=== PATIENT | female | born 1970 | race Caucasian/White ===

== ENCOUNTER 2017-06-26 07:16 | Emergency (ER) | payer BC ==
[2017-06-26 07:41] VITALS: BP 148/90
--- NOTE | 2017-06-26 08:16 | UC ---
Abdominal Pain Female HPI - HPI Summary HPI Summary: 46 yo female with acute onset of left flank pain yesterday no f/c some diaphoresis no n/v/d some constipation yesterday hx lap band no hx stones - History of Current Complaint Chief Complaint: UCAbdominalPain Stated Complaint: LEFT SIDE PAIN Time Seen by Provider: 06/26/17 08:06 Hx Obtained From: Patient Hx Last Menstrual Period: pt has a mirena in place Onset/Duration: Sudden Onset Severity Initially: Moderate Pain Intensity: 3 - 7-8 at times Pain Scale Used: 0-10 Numeric Location: Discrete At: LLQ Radiates: Yes Radiates to: Back Character: Aching, Sharp Aggravating Factor(s): Nothing Alleviating Factor(s): Nothing Female Torso: 1 - pain here 2 - radiates here Allergies/Adverse Reactions: Allergies Allergy/AdvReac Type Severity Reaction Status Date / Time SEasonal allergy Allergy Eyes Uncoded 06/26/17 07:44 Itchy/Swollen/Red/Watery Home Medications: Home Medications Albuterol HFA INHALER* [Ventolin HFA Inhaler*] 2 puff INH Q4H PRN 06/26/17 [ History Confirmed 06/26/17] Fluticasone NASAL SPRAY 50MCG* [Flonase NASAL SPRAY 50MCG*] 2 spray BOTH NARES DAILY 06/26/17 [History Confirmed 06/26/17] Spironolactone TAB* [Aldactone TAB*] 25 mg PO DAILY 06/26/17 [History Confirmed 06/26/17] metFORMIN* [Glucophage 500 MG TAB *] 500 mg PO BID 06/26/17 [History Confirmed 06/26/17] PMH/Surg Hx/FS Hx/Imm Hx Endocrine History: Thyroid Disease, Dyslipidemia Cardiovascular History: Hypertension GI/ History: Other Other GI/ History: PCOS - Surgical History Surgical History: Yes Surgery Procedure, Year, and Place: bariatric 12/2009 - Family History Known Family History: Positive: Hypertension, Other - diverticulitis - Social History Alcohol Use: Weekly Substance Use Type: None Smoking Status (MU): Never Smoked Tobacco Review of Systems Constitutional: Negative Skin: Negative Eyes: Negative ENT: Negative Respiratory: Negative Cardiovascular: Negative Gastrointestinal: Abdominal Pain Genitourinary: Negative Motor: Negative Neurovascular: Negative Musculoskeletal: Negative Neurological: Negative Psychological: Negative Is Patient Immunocompromised?: No All Other Systems Reviewed And Are Negative: Yes Physical Exam Triage Information Reviewed: Yes Appearance: Well-Appearing, No Pain Distress, Well-Nourished, Other: - BMI 50 Vital Signs: Initial Vital Signs Temp 98.1 F 06/26/17 07:32 Pulse 71 06/26/17 07:32 Resp 16 06/26/17 07:32 BP 148/90 06/26/17 07:32 Pulse Ox 98 06/26/17 07:32 Vital Signs Reviewed: Yes Eyes: Positive: Conjunctiva Clear ENT: Positive: Hearing grossly normal. Negative: Nasal congestion, Nasal drainage, Trismus, Muffled voice, Hoarse voice Neck: Positive: Supple, Nontender, No Lymphadenopathy Respiratory: Positive: Lungs clear, Normal breath sounds, No respiratory distress, No accessory muscle use Cardiovascular: Positive: RRR, No Murmur Abdomen Description: Negative: Nontender - markedly tender LLQ, CVA Tenderness ( R), CVA Tenderness (L) Musculoskeletal: Positive: ROM Intact, No Edema Neurological: Positive: Alert Psychological Exam: Normal Skin Exam: Normal Diagnostics - Laboratory Diagnostic Studies Completed/Ordered: uDip : (-) - Radiology No standard instances Xray Interpretation: No Acute Changes - Diverticulosis without definite evidence of diverticulitis Radiology Interpretation Completed By: Radiologist Abd Pain Female Course/Dx - Differential Dx/Diagnosis Provider Diagnoses: Left lower quadrient abd pain??? early diverticulitis. gall stones Discharge - Discharge Plan Condition: Stable Disposition: HOME Prescriptions: Amoxicillin/Clavulanate TAB* [Augmentin TAB 875*] 875 mg PO BID #14 tab Patient Education Materials: Diverticulitis (ED), Gallstones (ED) Referrals: Mukund More MD [Medical Doctor] - 2 Weeks Mouna Sanchez PA [Primary Care Provider] - 2 Days Additional Instructions: there was no definitive evidence of diverticulits but because of you exam I would like to start you on an antibiotic to ER for fever/vomiting/worsening pain I suggest you see your MD in 2 days for re check follow up with surgeon about your gallstones
--- NOTE | 2017-06-26 09:23 | RAD ---
Indication: Left flank pain. CT of the abdomen and pelvis was performed without oral or IV contrast administration. Coronal and sagittal reconstructed images were obtained. The lung bases demonstrate no pleural fluid, nodules or masses. Heart is of normal size without evidence of pericardial effusion. Liver is normal in size. No focal lesions or intrahepatic ductal dilatation is noted. The gallbladder demonstrates multiple calcified gallstones. No pericholecystic fluid or wall thickening is identified. The pancreas demonstrates no mass or pancreatic duct dilatation. The spleen is normal in size. No adrenal masses are noted. The kidneys demonstrates no hydronephrosis of either kidney. No evidence of renal or ureteral calculi is identified in either kidney. The kidneys demonstrates likely cortical cyst in the left kidney measuring up to 15 mm aorta and inferior vena cava are unremarkable. The pancreas demonstrates no mass or pancreatic duct dilatation. A lap band is identified. No dilated loops of bowel are noted. Aorta and inferior vena cava are unremarkable. There is diverticulosis present. No definite diverticulitis is noted. The uterus demonstrates IUD in place. The ovaries are grossly unremarkable. No hernias are noted. The urinary bladder is otherwise unremarkable. IMPRESSION: No evidence of obstructive uropathy is noted. Diverticulosis without definite evidence of diverticulitis.
== END 2017-06-26 09:41 | disposition home or self-care (01) ==
LOC: UCCORT 07:16
DX: R10.32 Left lower quadrant pain (principal); I10 Essential (primary) hypertension; E78.5 Hyperlipidemia, unspecified; E07.9 Disorder of thyroid, unspecified; K57.90 Diverticulosis of intestine, part unspecified, without perforation or abscess without bleeding
CPT/HCPCS: 74176; 81003; 99212; G0463

== ENCOUNTER 2018-04-03 14:53 | Emergency (ER) | payer BC ==
--- OUTSIDE RECORDS SUMMARY | 2018-04-03 15:09 | XMS REPORT ---
:1970 External Reference #:[id number] Author Organization [facility] Address [address] [place] [address] [place] [address] Phone [phone] Care Team Providers Name Role Phone Mouna Sanchez PA Primary Care Physician Unavailable Payers Type Date Identification Numbers Payment Provider Subscriber Commercial Policy Number: [id number] [facility] Gloria Barrera PayID: [id number] [address] [place] [address] Problems Description No Information Family History Date Family Member(s) Problem(s) Comments General Hypertension General Stroke Father Hypertension Father Stroke Mother Hypertension First Brother Hypertension Social History Type Date Description Comments Lives With Spouse 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 [employer] ETOH Use Drinks 5 Alcoholic Beverages Per Week Smoking Patient is a former smoker Exercise Type/Frequency Exercises sporadically Allergies, Adverse Reactions, Alerts Date Description Reaction Status Severity Comments 08/21/2017 NKDA active Medications Medication Date Status Form Strength Qnty SIG Indications Ordering Provider Proair HFA / Active Aerosol 108(90Base 2 puffs Unknown 0000 ) mcg/Act by mouth every 4 hours as needed Levothyroxine / Active Tablets 75mcg 1 by Unknown Sodium 0000 mouth every day Spironolactone / Active Tablets 25mg 1 by Unknown 0000 mouth every day Metformin HCL / Active Tablets 500mg 1 by Unknown 0000 mouth twice a day Flonase Allergy / Active Suspension 50mcg/Act spray 1 Unknown Relief 0000 spray in each nostril twice daily Calcium 600 + D / Active Tablets 600-200mg- 1 by Unknown 0000 Unit mouth twice a day Claritin / Active Capsules 10mg 1 tab Unknown 0000 daily as needed Celebrex / Active Capsules 100mg 1 tab by Unknown 0000 mouth daily Multivitamin 00/ Active Tablets 1 by Unknown Adult 0000 mouth every day Vital Signs Date Vital Result Comment 03/14/2018 Height 66 inches 5'6" Weight 302.00 lb BP Systolic Sitting 126 mmHg BP Diastolic Sitting 68 mmHg Respiratory Rate 17 /min Pain Level 2 BMI (Body Mass Index) 48.7 kg/m2 01/24/2018 Height 66 inches 5'6" Weight 302.00 lb BP Systolic Sitting 124 mmHg BP Diastolic Sitting 74 mmHg Respiratory Rate 17 /min Pain Level 4 can increase with activity. BMI (Body Mass Index) 48.7 kg/m2 01/17/2018 Height 66 inches 5'6" Weight 302.00 lb BP Systolic Sitting 126 mmHg BP Diastolic Sitting 80 mmHg Respiratory Rate 17 /min Pain Level 10 can get to 10 when standing BMI (Body Mass Index) 48.7 kg/m2 08/23/2017 Height 66 inches 5'6" Weight 302.00 lb Heart Rate 72 /min BP Systolic Sitting 120 mmHg BP Diastolic Sitting 82 mmHg Respiratory Rate 12 /min Pain Level 3 BMI (Body Mass Index) 48.7 kg/m2 Results Description No Information Procedures Date CPT Code Description Status 08/23/2017 07794 Rad Exam; Ankle Limited Completed Encounters Type Date Location Provider CPT E/M Dx Office Visit 01/24/2018 [facility], 14004 M76.62 2:30p Leia Perez M.D. Office Visit 01/17/2018 [facility], 08183 M76.62 3:15p Leia Perez M.D. Office Visit 08/23/2017 [facility], 27305 M76.62 10:30a Leia Perez M.D. M79.672 Plan of Care Future Appointment(s):05/02/2018 1:45 pm - [facility] M.D. at [facility]/14/2018 - [facility] M.D.M76.62 Achilles tendinitis, left legFollow up:6-8 weeeks
[2018-04-03 15:18] VITALS: BP 143/86
--- NOTE | 2018-04-03 15:36 | ED ---
Throat Pain/Nasal Congestion - HPI Summary HPI Summary: pt presents for evaluation of her congestion and subjective fevers. she states it started on monday. she slept a significant portion of the day yesterday. she denies any productive cough. she states she does use a flonase nasal spray. - History of Current Complaint Chief Complaint: UCGeneralIllness Hx Obtained From: Patient Onset/Duration: Gradual Onset Severity: Mild Associated Signs And Symptoms: Positive: Negative Cough: Nonproductive Related History: Seasonal Allergies - Epiglottits Risk Factors Epiglottis Risk Factors: Negative - Allergies/Home Medications Allergies/Adverse Reactions: Allergies Allergy/AdvReac Type Severity Reaction Status Date / Time SEasonal allergy Allergy Eyes Uncoded 01/19/18 09:48 Itchy/Swollen/Red/Watery Home Medications: Home Medications Levothyroxine TAB* [Synthroid TAB*] 75 mcg PO DAILY 04/03/18 [History Confirmed 04/03/18] PMH/Surg Hx/FS Hx/Imm Hx Previously Healthy: Yes Endocrine/Hematology History: Reports: Hx Thyroid Disease - hypo Denies: Hx Diabetes Cardiovascular History: Denies: Hx Hypertension, Hx Pacemaker/ICD Respiratory History: Reports: Hx Asthma - seasonal with allergies Sensory History: Denies: Hx Hearing Aid Psychiatric History: Denies: Hx Panic Disorder - Surgical History Surgery Procedure, Year, and Place: bariatric 12/2009; TUBAL LIGATION; Infectious Disease History: No Infectious Disease History: Denies: Traveled Outside the [place] in Last 30 Days - Family History Known Family History: Positive: Hypertension, Other - diverticulitis - Social History Alcohol Use: Occasionally Substance Use Type: Reports: None Smoking Status (MU): Former Smoker Review of Systems Positive: Fever - subjective Eyes: Negative Positive: Sore Throat, Nasal Discharge - and congestion Cardiovascular: Negative Positive: Cough. Negative: Shortness Of Breath Gastrointestinal: Negative Genitourinary: Negative Positive: Myalgia. Negative: Arthralgia, Decreased ROM, Edema Skin: Negative Neurological: Negative Psychological: Normal All Other Systems Reviewed And Are Negative: No Physical Exam Triage Information Reviewed: Yes Vital Signs On Initial Exam: Initial Vitals Temp Pulse Resp BP Pulse Ox 97.5 F 86 17 143/86 98 04/03/18 15:09 04/03/18 15:09 04/03/18 15:09 04/03/18 15:09 04/03/18 15:09 Vital Signs Reviewed: Yes Appearance: Positive: Well-Appearing, No Pain Distress, Well-Nourished Skin: Positive: Warm, Dry Head/Face: Positive: Normal Head/Face Inspection Eyes: Positive: Normal, EOMI, KHADIJAH ENT: Positive: Normal ENT inspection, Hearing grossly normal, Pharynx normal Neck: Positive: Supple, Nontender Respiratory/Lung Sounds: Positive: Clear to Auscultation, Breath Sounds Present , Decreased Breath Sounds Cardiovascular: Positive: Normal, RRR Abdomen Description: Positive: Nontender, Soft Bowel Sounds: Positive: Present Musculoskeletal: Positive: Normal, Strength/ROM Intact Neurological: Positive: Normal, Sensory/Motor Intact, Alert, Oriented to Person Place, Time, CN Intact II-III Psychiatric: Positive: Normal AVPU Assessment: Alert Diagnostics - Vital Signs Vital Signs Temp Pulse Resp BP Pulse Ox 04/03/18 15:09 97.5 F 86 17 143/86 98 - Laboratory Lab Statement: Any lab studies that have been ordered have been reviewed, and results considered in the medical decision making process. EENT Course/Dx - Course Course Of Treatment: pt has a viral uri. I discussed the importance of using the flonase nasal spray and to take tyelnol and motrin for body aches and pain. - Diagnoses Provider Diagnoses: Upper respiratory infection, viral Discharge - Sign-Out/Discharge Documenting (check all that apply): Patient Departure All imaging exams completed and their final reports reviewed: No Studies - Discharge Plan Condition: Stable Disposition: HOME Patient Education Materials: Cold Symptoms (ED) Referrals: Mouna Sanchez PA [Primary Care Provider] - Additional Instructions: continue to use the nasal spray. take tylenol and motrin for pain. return if worse or any new symptoms. follow up with your doctor this week. - Billing Disposition and Condition Condition: STABLE Disposition: Home
== END 2018-04-03 15:42 | disposition home or self-care (01) ==
LOC: UCCORT 14:53
DX: J06.9 Acute upper respiratory infection, unspecified (principal); E03.9 Hypothyroidism, unspecified; J45.909 Unspecified asthma, uncomplicated; Z98.84 Bariatric surgery status; Z87.891 Personal history of nicotine dependence
CPT/HCPCS: 99211; G0463

== ENCOUNTER 2018-05-20 15:12 | Emergency (ER) | payer BC ==
--- NOTE | 2018-05-20 15:40 | UC ---
Back Pain HPI - HPI Summary HPI Summary: Patient is 47 year old female , who present today to the urgent care with left-sided low back pain for past 1 week She denies any trauma or specific mechanism but she feels that she is been doing a lot of work around the house and was a lot of shopping and feels that the overuse might have caused her symptoms Pain is localized in her left lower back, describes it as a fist. Sometimes it radiates down the buttock, up to the knee. Has some associated numbness and tingling but that was there before as well. She does report having history of osteoarthritis in her lumbar spine. X-rays are on PACS- 2011: Multilevel degenerative changes She cannot stand for a long time, sitting down helps. Shopping cart sign is positive. Denies any fever, chills, cough chest pain or shortness of breath . No diaphoresis. Denies any abdominal pain , nausea or vomiting , diarrhea or constipation. Denies any incontinence, saddle anesthesia , motor or sensory disturbance. Patient tried icy hot and Celebrex that she uses for her knee pain without much relief. - History of Current Complaint Stated Complaint: BACK PAIN Time Seen by Provider: 05/20/18 15:38 Hx Obtained From: Patient Hx Last Menstrual Period: 03/18/18 - Allergies/Home Medications Allergies/Adverse Reactions: Allergies Allergy/AdvReac Type Severity Reaction Status Date / Time nickel Allergy Rash, Verified 05/20/18 15:47 blisters, And Itching SEasonal allergy Allergy Eyes Uncoded 01/19/18 09:48 Itchy/Swollen/Red/Watery Home Medications: Home Medications LoraTADine TAB(NF) [Claritin 10 MG TAB(NF)] 10 mg PO DAILY 05/20/18 [History Confirmed 05/20/18] celeCOXIB CAP* [CeleBREX CAP*] 100 mg PO DAILY 05/20/18 [History Confirmed 05/20] PMH/Surg Hx/FS Hx/Imm Hx - Additional Past Medical History Additional PMH: Hypothyroidism Asthma Seasonal allergy Osteoarthritis Achilles tendinitis Previously Healthy: Yes - Surgical History Surgical History: Yes Surgery Procedure, Year, and Place: bariatric 12/2009; TUBAL LIGATION; - Family History Known Family History: Positive: Hypertension, Other - diverticulitis - Social History Alcohol Use: Occasionally Substance Use Type: None Smoking Status (MU): Former Smoker Review of Systems All Other Systems Reviewed And Are Negative: Yes Constitutional: Positive: Negative Skin: Positive: Negative Eyes: Positive: Negative ENT: Positive: Negative Respiratory: Positive: Negative Cardiovascular: Positive: Negative Gastrointestinal: Positive: Negative Genitourinary: Positive: Negative Motor: Positive: Decreased ROM - Lumbar spine Neurovascular: Positive: Negative Musculoskeletal: Positive: Arthralgia - Lumbar spine, Decreased ROM - Lumbar spine, Myalgia - Low back Neurological: Positive: Negative Psychological: Positive: Negative Is Patient Immunocompromised?: No Physical Exam - Summary Physical Exam Summary: Physical Exam: Const: Appears well. No signs of apparent distress present. Alert and oriented x 3. Musculo: Walks with a normal gait. Head/Face: Atraumatic, normocephalic on inspection. Eyes: EOMI and PERRLA in both eyes. Conjunctivae clear. No discharge noted ENT: Hearing normal Respiratory: Respirations are unlabored. Lungs clear to auscultation bilaterally, no wheezing , rhonchi or rales noted . CVS: Regular rate and Rhythm, S1S2 normal , no murmurs identified. Abdomen : Soft non tender , nondistended , Bowel sounds present . No guarding , rebound tenderness or rigidity noted. Hip/ Spine: Spine: No loss of the normal lumbar lordosis or step-off. Mild midline tenderness of the lumbar spine noted at L3-L4/L4-L5. More significant tenderness on on the left paraspinal muscles in that same area. Stability: No obvious instability. Strength: Flexion, extension, left rotation, left lateral bending, right lateral bending and right rotation strength is intact. ROM: Limited and painful range of motion with flexion and extension. Special Tests: Straight leg raise is negative bilaterally. Hip: Insp/Palp: Normal to inspection and palpation. Strength: 5/5 bilaterally. Normal muscle tone bilaterally. ROM: Pain-free Thighs: No swelling bilaterally in the lower extremities. No tenderness of the greater trochanter bilaterally. Skin: No scars, rashes, lesions or ecchymosis. Neuro: Sensation intact to light touch. Motor and sensory intact. Reflexes: Left DTR's are intact. Right DTR's are intact. Toes downgoing. Coordination normal. Distal pulses intact. Triage Information Reviewed: Yes Vital Signs Reviewed: Yes Back Pain Course/Dx - Course Course Of Treatment: During the visit today, we discussed the findings and further plan. Her x-rays of lumbar spine from 2010 were reviewed and demonstrated degenerative changes . Her symptoms appear to be consistent with flare up of osteoarthritis of lumbar spine with a possibility of spinal stenosis .plan to treat it with muscle relaxant and a short course of steroid to relieve her symptoms. I discussed the side effects and precautions with Flexeril. She can continue taking Celebrex as needed. Plan to have her follow up with orthopedics within a one-week if no improvement. She expressed understanding and agrees with plan. - Differential Dx/Diagnosis Provider Diagnosis: Low back pain, Degenerative joint disease (DJD) of lumbar spine, Spinal stenosis Discharge - Sign-Out/Discharge Documenting (check all that apply): Patient Departure - . All imaging exams completed and their final reports reviewed: No Studies - Discharge Plan Condition: Stable Disposition: HOME Prescriptions: Cyclobenzaprine TAB* [Flexeril 10 MG TAB*] 10 mg PO BID PRN 10 Days #20 tab PRN Reason: Spasms - Back methylPREDNISolone [Medrol Dosepak 4 MG*] 0 mg PO .SEE GREY INSTRUCTION 6 Days # 1 grey Patient Education Materials: Back Pain (ED), Lower Back Exercises (ED), Arthritis (ED) Referrals: Mouna Sanchez PA [Primary Care Provider] - 1 Week Hugo Padilla MD [Medical Doctor] - 1 Week Additional Instructions: Please start taking the medication as prescribed to the pharmacy . Continue taking Celebrex as needed Use Flexeril as needed for muscle spasms Please start physical therapy Follow up with orthopedics within a week if no improvement Patients blood pressure slightly high in Urgent care today , plan follow up with PCP for better control Return to Urgent care / ER if symptoms get worse. - Billing Disposition and Condition Condition: STABLE Disposition: Home
[2018-05-20 15:46] VITALS: BP 141/82
== END 2018-05-20 16:19 | disposition home or self-care (01) ==
LOC: UCCORT 15:12
DX: M54.5 Low back pain (principal); M47.9 Spondylosis, unspecified; M48.00 Spinal stenosis, site unspecified; Z87.891 Personal history of nicotine dependence
CPT/HCPCS: 99212; G0463

== ENCOUNTER 2019-05-20 16:26 | Emergency (ER) | payer OTHER, BC ==
--- OUTSIDE RECORDS SUMMARY | 2019-05-20 16:53 | XMS REPORT | Continuity of Care Document ---
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 quit 3 years ago Recreational Drug Use Never Used Drugs Allergies, Adverse Reactions, Alerts Active Allergies Reaction Severity Comments Date NKDA 10/02/2013 Seasonal 10/02/2013 Medications Active Medications SIG Qnty Indications Ordering Provider Date Celebrex 100mg Unknown Capsules Metformin HCL Unknown Spironolactone Unknown Levothyroxine Sodium Unknown Medications Administered in Office Medication SIG Qnty Indications Ordering Provider Date Methylprednisolone acetate Jaqueline You, 05/19/2016 (Depomedrol) 80mg injection RPAC Injection Methylprednisolone acetate Jaqueline You, 10/06/2015 (Depomedrol) 80mg injection RPAC Injection Methylprednisolone acetate Jaqueline You, 09/30/2014 (Depomedrol) 80mg injection RPAC Injection Methylprednisolone acetate Jaqueline You, 10/02/2013 (Depomedrol) 80mg injection RPAC Injection Immunizations Description No Information Available Vital Signs Date Vital Result Comment 10/06/2015 1:30pm BP Systolic 126 mmHg BP Diastolic 84 mmHg Heart Rate 85 /min Height 66.75 inches 5'6.75" Weight 308.00 lb BMI (Body Mass Index) 48.6 kg/m2 BSA (Body Surface Area) 2.42 m2 10/02/2013 11:05am BP Systolic Sitting Right Arm 128 mmHg BP Diastolic Sitting Right Arm 88 mmHg Height 67.5 inches 5'7.50" Weight 304.00 lb BMI (Body Mass Index) 46.9 kg/m2 BSA (Body Surface Area) 2.43 m2 Results Description No Information Available Procedures Date Code Description Status 01/03/2019 93197 Refraction Completed 01/03/2019 61425 Eye Exam Est Patient Comprehensive Completed Medical Devices Description No Information Available Encounters Type Date Location Provider Dx Diagnosis Office Visit 03/25/2019 Ophthalmology Allan Cormier MD H52.13 Myopia, bilateral 9:15a Assessments Date Code Description Provider 03/25/2019 H52.13 Myopia, bilateral Allan Cormier MD 01/03/2019 H04.123 Dry eye syndrome of bilateral lacrimal glands Allan Cormier MD 01/03/2019 H25.813 Combined forms of age-related cataract, bilateral Allan Cormier MD 01/03/2019 H52.13 Myopia, bilateral Allan Cormier MD Plan of Treatment Future Appointment(s):01/07/2020 10:00 am - Allan C[facility]ier MD at [facility]/ 28/2019 - Allan Cormier MDH52.13 Myopia, bilateralComments:- provided updated rx to allow for more satisfactory visual experienceFollow up:please call with ? or concerns Functional Status Description No Information Available Mental Status Description No Information Available Referrals Description No Information Available
[2019-05-20] MEDS ORDERED: Tetan/Diph/Pertus SYR(Tdap)* 0.5 ML SYR(BOOSTRIX) use SYR contains LATEX IM ONE (16:55)
[2019-05-20 16:58] VITALS: BP 150/95
--- NOTE | 2019-05-20 17:02 | UC ---
Hand/Wrist HPI - HPI Summary HPI Summary: 28-year-old female who was holding 2 pieces of wood when she is to nail gun that had a 2 inch nail put through a 1-1/2 inch board causing a puncture wound to her left ring finger. - History Of Current Complaint Chief Complaint: UCTrauma Stated Complaint: PUNCTURE WOUND Time Seen by Provider: 05/20/19 16:55 Hx Obtained From: Patient - he's also Hx Last Menstrual Period: 03/18/18 ?: No Onset/Duration: Sudden Onset Severity Initially: Mild Severity Currently: Mild Pain Intensity: 3 Alleviating Factor(s): Other - Patient states her finger is not presently painful. Associated Signs And Symptoms: Positive: Other - Puncture wound to the palmar side of her left ring finger distally - Allergies/Home Medications Allergies/Adverse Reactions: Allergies Allergy/AdvReac Type Severity Reaction Status Date / Time nickel Allergy Rash, Verified 05/20/19 16:58 blisters, And Itching SEasonal allergy Allergy Eyes Uncoded 05/20/19 16:58 Itchy/Swollen/Red/Watery PMH/Surg Hx/FS Hx/Imm Hx Previously Healthy: Yes Endocrine History: Thyroid Disease - Surgical History Surgical History: Yes Surgery Procedure, Year, and Place: bariatric 12/2009; TUBAL LIGATION; - Family History Known Family History: Positive: Hypertension, Other - diverticulitis - Social History Alcohol Use: Weekly Substance Use Type: None Smoking Status (MU): Former Smoker When Did the Patient Quit Smoking/Using Tobacco: 10 yrs Review of Systems All Other Systems Reviewed And Are Negative: Yes Skin: Positive: Other - Puncture wound to the distal portion of the palmar side of her left ring finger. Is Patient Immunocompromised?: No Physical Exam Triage Information Reviewed: Yes Appearance: Well-Appearing, No Pain Distress, Well-Nourished Vital Signs: Initial Vital Signs Temp 98.3 F 05/20/19 16:53 Pulse 75 05/20/19 16:53 Resp 18 05/20/19 16:53 BP 150/95 05/20/19 16:53 Pulse Ox 100 05/20/19 16:53 Vital Signs Reviewed: Yes Musculoskeletal Exam: Normal Musculoskeletal: Positive: Other: - Nontender on palpation. Neurological Exam: Normal Neurological: Positive: Other: - Good peripheral pulses neuro sensation capillary refill, full range of motion. Psychological Exam: Normal Skin: Positive: Other - Puncture wound is present to the palmar side of her distal left ring finger. Hand/Wrist Course/Dx - Course Course Of Treatment: Left finger x-ray: negative Tdap tetanus immunization was given. - Differential Dx/Diagnosis Provider Diagnosis: Puncture wound of left ring finger Discharge ED - Sign-Out/Discharge Documenting (check all that apply): Patient Departure All imaging exams completed and their final reports reviewed: Yes - Discharge Plan Condition: Good Disposition: HOME Patient Education Materials: Puncture Wound (DC) Referrals: Mouna Sanchez PA [Primary Care Provider] - Additional Instructions: Warm salt water soaks 4-6 times a day for 20 minutes each time. Watch for signs of infection such as hot, red, tender, swollen, red streaks up your finger or pus drainage. Your tetanus immunization is good for 8-10 years. Follow-up with your primary care provider if no improvement in 4 or 5 days. - Billing Disposition and Condition Condition: GOOD Disposition: Home
== END 2019-05-20 17:33 | disposition home or self-care (01) ==
LOC: UCCORT 16:26
DX: S61.235A Puncture wound without foreign body of left ring finger without damage to nail, initial encounter (principal); Z91.09 Other allergy status, other than to drugs and biological substances; Z87.891 Personal history of nicotine dependence; Z23 Encounter for immunization; W29.4XXA Contact with nail gun, initial encounter; Y92.9 Unspecified place or not applicable
CPT/HCPCS: 73140; 90715; 99211; G0463